=== PATIENT | female | born 1995 | race Caucasian/White ===

== ENCOUNTER → 2016-06-03 | Outpatient (CLI) | payer BC, OTHER ==
[~2016-06-03] MED LIST: BCPILLS PO; CEPH500C PO; CLR10 PO; IBUP-1050 PO; PROM25TA9 PO
[2016-06-05 01:21] LABS: CHLAMYDIA TRACH RNA*** NOT DETECTED (NOT DETECTED); GC (NEIS GONORRHOEAE)RNA** NOT DETECTED (NOT DETECTED)
== END | disposition home or self-care (01) ==
LOC: C.LABSPEC 11:32
PROVIDERS: ATTEND Obstetrics & Gynecology
DX: Z01.419 Encounter for gynecological examination (general) (routine) without abnormal findings (principal)

== ENCOUNTER 2017-01-22 17:04 | Emergency (ER) | payer BC, OTHER ==
[~2017-01-22] VITALS: Ht 152.4 cm; Wt 63.6 kg
[2017-01-22 17:12] VITALS: TEMP 37.1; Ht 152.4 cm; Wt 63.6 kg
[2017-01-22] MEDS ORDERED: PROMETHAZINE HCL INJ 12.5 MG in SODIUM CHLORIDE 0.9% 50ML 50 ML IV STA ×2 (19:14→21:24)
--- NOTE | 2017-01-22 19:14 | EMERGENCY ROOM VISIT NOTE ---
History First contact with patient: 18:44 Chief Complaint: VOMITING Stated Complaint: NAUSEA, VOMITING, CHILLS, SWEATS, MIGRAINE Nursing Triage Summary: migraine yesterday, went to bed awoke today at 0915 and c/o n/v History of Present Illness The patient is a 21 year old female who presents to the Emergency Room with complaints of nausea and vomiting that started this morning when she woke up. The patient reports having a migraine yesterday. She does have a history of migraines. She took ibuprofen, which helped with the pain. She did not have a headache this morning. She had 4 different episodes of bilious emesis throughout the day today. She denies any abdominal pain. She reports having a normal bowel movement today. She denies any blood in her stool. She denies any fever or chills. No sick contacts. 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 She denies any recent travel. Review of Systems 10 system review performed and negative unless noted in HPI or below Past Medical/Surgical History Otherwise healthy Social History Smoking Status: Never Smoker Alcohol Use: occasionally Occupation Status: [employer] student Current/Historical Medications Scheduled Control Pills ( Control Pills), 1 TAB PO DAILY Ibuprofen (Advil), 400 MG PO PRN UD Scheduled PRN Loratadine (Claritin), 10 MG PO DAILY PRN for Seasonal Allergies Physical Exam Vital Signs Date Time Temp Pulse Resp B/P (MAP) Pulse Ox O2 Delivery O2 Flow Rate FiO2 01/22/17 20:32 84 18 122/80 100 Room Air 01/22/17 19:12 99 18 134/84 100 Room Air 01/22/17 17:12 37.1 110 18 119/78 98 Room Air Physical Exam VITALS: Vitals are noted on the nurse's note and reviewed by myself. Vital signs stable. GENERAL: 21-year-old female, in no acute distress, nondiaphoretic, well- developed well-nourished. SKIN: The skin was without rashes, erythema, edema, or bruising. HEAD: Normocephalic atraumatic. MOUTH: Mucous membranes dry NECK: Supple without nuchal rigidity. No lymphadenopathy. Cervical spine is nontender. No JVD. HEART: Regular rate and rhythm without murmurs gallops or rubs. LUNGS: Clear to auscultation bilaterally without wheezes, rales or rhonchi. No accessory muscle use. ABDOMEN: Bowel sounds present, but hypoactive. Soft, nontender, without organomegaly. No guarding or rebound tenderness. MUSCULOSKELETAL: No muscle atrophy, erythema, or edema noted.. Strength 5/5 throughout. NEURO: Patient was alert and oriented to person place and time. Normal sensation to touch. No focal neurological deficits. Medical Decision & Procedures ER Provider Diagnostic Interpretation: Patient Name: MARLYN PINEDA Unit Number: [id number] Dictated: 01/22/172022 Transcribed: 01/22/172022 PBS Printed Date/Time: [~ rep prt dt]/[~ rep prt tm] [~ rep ct labl] - [~ rep ct ivnm] [facility] [place] [address] Dictated: 01/22/172022 Transcribed: 01/22/172022 PBS Printed Date/Time: [~ rep prt dt]/[~ rep prt tm] [~ rep ct labl] - [~ rep ct ivnm] ABDOMEN 2VIEW W/PA CHEST RTN CLINICAL HISTORY: 21 years-old Female presenting with vomiting , nausea since this morning, r/o obstruction. TECHNIQUE: PA view of the chest and supine and upright views of the abdomen were obtained. COMPARISON: None. FINDINGS: Cardiomediastinal silhouette normal. Lungs and pleural spaces clear. No calcifications project over the renal shadows. Normal bowel gas pattern. No evidence of free intraperitoneal gas, pneumatosis, or portal venous gas. Osseous structures normal. IMPRESSION: 1. No acute cardiopulmonary disease. No radiographic evidence of acute intra-abdominal pathology. Electronically signed by: Will Meléndez M.D. 01/22/2017 8:23 PM Dictated Date/Time: 01/22/2017 8:23 PM The status of this report is Signed. Draft = Not yet reviewed or approved by Radiologist. Signed = Reviewed and approved by Radiologist. <AttendingPhy></AttendingPhy> <FamilyPhy>[facility]</FamilyPhy> <PrimaryPhy>[facility]</PrimaryPhy> <UnitNumber>[id number]</ UnitNumber> <VisitNumber>[id number]</VisitNumber> <PatientName>MARLYN PINEDA</PatientName> <DateOfBirth>1995</DateOfBirth> <Location>[facility]</ Location> <ServiceDate>01/22/17</ServiceDate> <MNE>ESINDI</MNE> <OrderingPhy> EricJelly Chrissie MODI</OrderingPhy> <OrderingPhyMNE>f rep ord dr whitley</ OrderingPhyMNE> <DictatingPhyMNE>f rep dict dr whitley</DictatingPhyMNE> <CCListMNE> f rep ct mne</CCListMNE> <AdmittingPhyMNE>f pt admit dr whitley</AdmittingPhyMNE> < AttendingPhyMNE>f pt attend dr whitley</AttendingPhyMNE> <ConsultingPhyMNE>f pt consult dr whitley</ConsultingPhyMNE> <FamilyPhyMNE>f pt fam dr whitley</FamilyPhyMNE> <OtherPhyMNE>f pt other dr whitley</OtherPhyMNE> < PrimaryPhyMNE>f pt prim care dr whitley</PrimaryPhyMNE> <ReferringPhyMNE>f pt referring dr whitley</ReferringPhyMNE> Laboratory Results 01/22/17 19:44 Red Blood Count 5.26, Mean Corpuscular Volume 86.1, Mean Corpuscular Hemoglobin 29.1, Mean Corpuscular Hemoglobin Concent 33.8, Mean Platelet Volume 10.5, Neutrophils (%) (Auto) 93.1, Lymphocytes (%) (Auto) 4.7, Monocytes (%) (Auto) 1.7, Eosinophils (%) (Auto) 0.2, Basophils (%) (Auto) 0.1, Neutrophils # (Auto) 10.17, Lymphocytes # (Auto) 0.51, Monocytes # (Auto) 0.19, Eosinophils # (Auto) 0.02, Basophils # (Auto) 0.01 01/22/17 19:44 Test 01/22/17 19:44 White Blood Count 10.92 K/uL (4.8-10.8) Red Blood Count 5.26 M/uL (4.2-5.4) Hemoglobin 15.3 g/dL (12.0-16.0) Hematocrit 45.3 % (37-47) Mean Corpuscular Volume 86.1 fL (80-100) Mean Corpuscular Hemoglobin 29.1 pg (25-34) Mean Corpuscular Hemoglobin Concent 33.8 g/dl (32-36) Platelet Count 188 K/uL (130-400) Mean Platelet Volume 10.5 fL (7.4-10.4) Neutrophils (%) (Auto) 93.1 % Lymphocytes (%) (Auto) 4.7 % Monocytes (%) (Auto) 1.7 % Eosinophils (%) (Auto) 0.2 % Basophils (%) (Auto) 0.1 % Neutrophils # (Auto) 10.17 K/uL (1.4-6.5) Lymphocytes # (Auto) 0.51 K/uL (1.2-3.4) Monocytes # (Auto) 0.19 K/uL (0.11-0.59) Eosinophils # (Auto) 0.02 K/uL (0-0.5) Basophils # (Auto) 0.01 K/uL (0-0.2) RDW Standard Deviation 38.7 fL (36.4-46.3) RDW Coefficient of Variation 12.2 % (11.5-14.5) Immature Granulocyte % (Auto) 0.2 % Immature Granulocyte # (Auto) 0.02 K/uL (0.00-0.02) Urine Color DK YELLOW Urine Appearance CLOUDY (CLEAR) Urine pH 5.5 (4.5-7.5) Urine Specific [place] 1.028 (1.000-1.030) Urine Protein TRACE (NEG) Urine Glucose (UA) TRACE (NEG) Urine Ketones 3+ (NEG) Urine Occult Blood NEG (NEG) Urine Nitrite NEG (NEG) Urine Bilirubin NEG (NEG) Urine Urobilinogen NEG (NEG) Urine Leukocyte Esterase SMALL (NEG) Urine WBC (Auto) >30 /hpf (0-5) Urine RBC (Auto) 5-10 /hpf (0-4) Urine Hyaline Casts (Auto) 5-10 /lpf (0-5) Urine Epithelial Cells (Auto) >30 /lpf (0-5) Urine Bacteria (Auto) 1+ (NEG) Urine Test NEG (NEG) Anion Gap 9.0 mmol/L (3-11) Est Creatinine Clear Calc Drug Dose 92.6 ml/min Estimated GFR () 122.2 Estimated GFR (Non- 105.4 BUN/Creatinine Ratio 12.5 (10-20) Calcium Level 9.1 mg/dl (8.5-10.1) Total Bilirubin 0.7 mg/dl (0.2-1) Aspartate Amino Transf (AST/SGOT) 34 U/L (15-37) Alanine Aminotransferase (ALT/SGPT) 48 U/L (12-78) Alkaline Phosphatase 49 U/L (45-117) Total Protein 7.9 gm/dl (6.4-8.2) Albumin 4.0 gm/dl (3.4-5.0) Globulin 3.9 gm/dl (2.5-4.0) Albumin/Globulin Ratio 1.0 (0.9-2) Lipase 94 U/L (73-393) Chemistry Specimen Hemolysis Medications Administered Medications (Trade) Dose Ordered Sig/[place] Route Start Time Stop Time Status Last Admin Dose Admin Promethazine HCl 12.5 mg/Sodium Chloride 50.5 ml @ 204 mls/hr NOW STAT IV 01/22/17 19:14 01/22/17 19:28 DC 01/22/17 19:42 204 MLS/HR Sodium Chloride 1,000 ml @ 999 mls/hr Q1H1M ONCE IV 01/22/17 19:15 01/22/17 20:15 DC 01/22/17 19:42 999 MLS/HR Sodium Chloride 1,000 ml @ 999 mls/hr Q1H1M ONCE IV 01/22/17 19:15 01/22/17 20:15 DC 01/22/17 20:32 999 MLS/HR Ceftriaxone Sodium 1 gm/ Dextrose 50 ml @ 100 mls/hr ONE STAT IV 01/22/17 21:16 01/22/17 21:45 DC 01/22/17 21:29 100 MLS/HR Promethazine HCl 12.5 mg/Sodium Chloride 50.5 ml @ 204 mls/hr NOW STAT IV 01/22/17 21:24 01/22/17 21:38 DC 01/22/17 21:52 204 MLS/HR ED Course Patient was seen and examined Vital signs including blood pressure were reviewed medications list was verified with patient Labs were obtained, and a saline lock was established The patient was given Phenergan 12.5 mg IV. She was hydrated with 2 L of normal saline. Upon reevaluation, the patient's nausea was better, but still present. She was given an additional dose of Phenergan 12.5 mg IV. We reviewed her workup. She voiced understanding. She was given 1 dose of Rocephin IV The patient had good nausea control after her second dose of Phenergan. I reviewed discharge instructions the patient. They voiced understanding and had no further questions. Medical Decision DIFFERENTIAL DIAGNOSIS: Gastroenteritis, Hepatitis, cholecystitis, cholangitis, biliary colic, pancreatitis, appendicitis, inguinal hernia, nephrolithiasis, inflammatory bowel disease, mesenteric adenitis, peptic ulcer disease, GERD, gastritis, pancreatitis,, bowel obstruction, splenic infarct, diverticulitis, mesenteric ischemia, metabolic, peritonitis, among others. This patient is a 21-year-old female that presents the emergency department with vomiting. She had no complaints of abdominal pain. She was afebrile. Her abdomen was benign on exam. X-rays were unremarkable. The patient had symptomatically relief after 2 doses of Phenergan. She was tolerating liquids. She does appear to have a urinary tract infection. She was given 1 dose of Rocephin, and a urine culture was sent. She does not have any flank pain. I do not suspect pyelonephritis. She was discharged home with a prescription for Phenergan in addition to Keflex. She was instructed to follow-up with [facility] within one week for recheck. She agrees to return to the emergency department with any new or persistent symptoms. Medication Reconcilliation Current Medication List: was personally reviewed by me Blood Pressure Screening Patient's blood pressure: Normal blood pressure Impression Primary Impression: Vomiting Additional Impression: UTI (urinary tract infection) Departure Information Dispostion Home / Self-Care Condition GOOD Prescriptions Cephalexin Monohydrate (Keflex) 500 Mg Cap 500 MG PO QID for 7 Days, #28 CAP Prov: Jelly Reyes PA-C 01/22/17 Promethazine Hcl (Phenergan) 25 Mg Tab 25 MG PO Q6H Y for Nausea, #15 TAB Prov: Jelly Reyes PA-C 01/22/17 Referrals No Doctor, Assigned (PCP) Patient Instructions My [facility] Additional Instructions You were evaluated in the emergency department tonight for vomiting. It also appears that you have a urinary tract infection. Please drink plenty of fluids. Follow a clear liquid diet for 24 hours. If tolerated, then you may advance to a bland diet such as toast, crackers and bananas Please take Phenergan every 6 hours as needed for nausea. This medication may make you drowsy. Please do not drive well taking it. Please finish the entire course of antibiotics Return to the emergency department if you have any of the following symptoms: -Fever of 103F or greater -Persistent vomiting - Persistent diarrhea -Lethargy -Chest pain -Shortness of breath -Abdominal or flank pain School Instructions Return To School: 2 days Problem Qualifiers
[2017-01-22] MEDS ORDERED: SODIUM CHLORIDE 0.9% 1000ML 1,000 ML IV ONE ×2 (19:15)
[2017-01-22] MEDS ORDERED: CLR10 PO (19:20)
[2017-01-22] MEDS ORDERED: BCPILLS PO (19:20)
[2017-01-22] MEDS ORDERED: IBUP-1050 PO (19:20)
[2017-01-22 19:57] LABS: URINE APPEARANCE CLOUDY (CLEAR); URINE BILIRUBIN NEG (NEG); URINE COLOR DK YELLOW; URINE EPITHELIAL CELL AUTO >30 /lpf (0-5); URINE NITRITE NEG (NEG); URINE PH 5.5 (4.5-7.5); URINE SPECIFIC GRAVITY 1.028 (1.000-1.030); UROBILINOGEN NEG (NEG)
[2017-01-22 20:01] LABS: MANUAL MICROSCOPIC REQUIRED? NO; REVIEW REQ? NO
[2017-01-22 20:11] LABS: BASO % 0.1 %; BASO ABS # 0.01 K/uL (0-0.2); COMPLETE YES; EOS % 0.2 %; HEMATOCRIT 45.3 % (37-47); IG% 0.2 %; LYMPH % 4.7 %; LYMPH ABS # 0.51 K/uL (1.2-3.4); MEAN CELL VOLUME 86.1 fL (80-100); MEAN CORPUSCULAR HEMOGLOBIN 29.1 pg (25-34); MEAN CORPUSCULAR HGB CONC 33.8 g/dl (32-36); MEAN PLATELET VOLUME 10.5 fL (7.4-10.4); MONO % 1.7 %; NEUT % 93.1 %; PLATELET COUNT 188 K/uL (130-400); RED BLOOD COUNT 5.26 M/uL (4.2-5.4); WHITE BLOOD COUNT 10.92 K/uL (4.8-10.8)
--- NOTE | 2017-01-22 20:25 | DIAGNOSTIC IMAGING REPORT ---
ABDOMEN 2VIEW W/PA CHEST RTN CLINICAL HISTORY: 21 years-old Female presenting with vomiting , nausea since this morning, r/o obstruction. TECHNIQUE: PA view of the chest and supine and upright views of the abdomen were obtained. COMPARISON: None. FINDINGS: Cardiomediastinal silhouette normal. Lungs and pleural spaces clear. No calcifications project over the renal shadows. Normal bowel gas pattern. No evidence of free intraperitoneal gas, pneumatosis, or portal venous gas. Osseous structures normal. IMPRESSION: 1. No acute cardiopulmonary disease. No radiographic evidence of acute intra-abdominal pathology. Electronically signed by: Will Meléndez M.D. 01/22/2017 8:23 PM Dictated Date/Time: 01/22/2017 8:23 PM
[2017-01-22 20:35] LABS: BUN/CREATININE RATIO 12.5 (10-20); CALCIUM 9.1 mg/dl (8.5-10.1); CREATININE 0.8 mg/dl (0.60-1.20); POTASSIUM 4.2 mmol/L (3.5-5.1)
[2017-01-22] MEDS ORDERED: CEFTRIAXONE SOD INJ 1 GM in DEXTROSE 5% ADD-VANTAGE 50ML 50 ML IV STA (21:16)
[2017-01-22] MEDS ORDERED: PHENERGAN 25MG HOMEPACK PO ONE (22:15)
[2017-01-22] MEDS ORDERED: PROM25TA9 PO (22:16)
[2017-01-22] MEDS ORDERED: CEPH500C PO (22:16)
[2017-01-22 22:30] VITALS: BP 132/75; PULSE 94; O2SAT 100
== END 2017-01-22 22:30 | disposition home or self-care (01) ==
LOC: C.EDB 17:06
DX: N39.0 Urinary tract infection, site not specified (principal); R11.2 Nausea with vomiting, unspecified; Z79.3 Long term (current) use of hormonal contraceptives